=== PATIENT | male | born 1970 | race Hispanic/Latino ===

== ENCOUNTER → 2019-09-18 | Outpatient (CLI) | payer OTHER ==
[~2019-09-18] MED LIST: IOPAMIDOL 370 MG/ML 200 ML INFUS..BTL INJ ONE; SODIUM CHLORIDE 0.9% 50ML 50 ML ONE
--- NOTE | 2019-09-18 13:50 | Diagnostic Imaging Report ---
CT of the chest, with contrast. History: Dyspnea. Comparison: None available. Technique: Multidetector CT scanning of the chest was performed from the level of the apices to the upper abdomen after intravenous administration of contrast. Coronal and sagittal multiplanar reformations were obtained. RADIATION DOSE: Total DLP: 489.05 mGy*cm Dose modulation, iterative reconstruction, and/or weight based adjustment of the mA/kV was utilized to reduce the radiation dose to as low as reasonably achievable. FINDINGS: The thyroid and remaining visualized structures within the base of the neck demonstrate no significant abnormalities. The thoracic aorta is normal in course and caliber. The main pulmonary artery is normal in caliber. Although this examination was not tailored for detailed evaluation of the pulmonary arteries, no central filling defect is identified to suggest pulmonary thromboembolism. The heart is not enlarged. No abnormal pericardial fluid is present. There is no abnormal axillary, mediastinal, or hilar lymph node enlargement. The trachea and proximal airways are patent. There is mild dependent density/atelectasis present. Examination of the lungs otherwise demonstrates no evidence for consolidation, pneumothorax, mass, suspicious nodule, or pleural effusion. Limited views of the upper abdomen demonstrate no significant abnormalities. The osseous structures demonstrate no evidence for acute fracture or destructive process. The extrathoracic soft tissues are unremarkable. IMPRESSION: No acute intrathoracic process identified. Signed by: Dr. Jono Resendiz MD on 09/18/2019 1:47 PM
== END ==
LOC: CT 12:31
PROVIDERS: ATTEND Internal Medicine Critical Care Medicine
DX: R06.00 Dyspnea, unspecified (principal)
CPT/HCPCS: 71260; Q9967

== ENCOUNTER → 2023-12-21 | Day surgery (SDC) | payer BC ==
[~2023-12-21] MED LIST changes: -IOPAMIDOL 370 MG/ML 200 ML INFUS..BTL INJ ONE; +LIDOCAINE HCL 2% LOCAL INJ 5 ML SDV VIAL INJ ONE; +MIDAZOLAM HCL 2 MG/2 ML VIAL ONE; +PROPOFOL IV EMULSION 10 MG/ML 20 ML VIAL ONE; -SODIUM CHLORIDE 0.9% 50ML 50 ML ONE; +TADALAFIL5 MG PO; +TESTOSTERONE SHOT
[2023-12-21] MEDS: LACTATED RINGER'S 1,000 ML ONE (09:00)
[2023-12-21 10:10] VITALS: BP 121/59; PULSE 71; RESP 18; O2SAT 98
== END | disposition home or self-care (01) ==
LOC: OR 07:39
PROVIDERS: ATTEND Internal Medicine Gastroenterology
DX: Z12.11 Encounter for screening for malignant neoplasm of colon (principal); D12.3 Benign neoplasm of transverse colon; K64.1 Second degree hemorrhoids; K59.00 Constipation, unspecified; L29.0 Pruritus ani; Z01.810 Encounter for preprocedural cardiovascular examination; Z68.31 Body mass index [BMI] 31.0-31.9, adult
CPT/HCPCS: 45384; 93005; J2003; J2250; J2704; J7121